=== PATIENT | male | born 1990 | race African-American/Black ===

== ENCOUNTER → 2020-05-24 | Outpatient (CLI) | payer SELFPAY | END | disposition home or self-care (01) | LOC: LABWHC1 11:15 | PROVIDERS: ATTEND Emergency Medicine | DX: Z20.828 Contact with and (suspected) exposure to other viral communicable diseases (principal) | CPT/HCPCS: U0003; C9803 ==

== ENCOUNTER 2022-02-17 12:38 | Emergency (ER) | payer BC, OTHER ==
[2022-02-17 13:01] VITALS: RESP 18
[2022-02-17] MEDS ORDERED: KETOROLAC 15 MG/ML 1 ML VIAL IVP STA (14:00)
[2022-02-17] MEDS ORDERED: ONDANSETRON ODT 4 MG TAB PO STA (14:00)
[2022-02-17] MEDS ORDERED: SODIUM CHLORIDE 0.9% 1,000 ML IV STA (14:00)
[2022-02-17 14:42] LABS: Appearance,Urine Clear (Clear); Bilirubin,Urine Negative (Negative); Blood,Urine Negative (Negative); Color,Urine Yellow; Glucose,Urine (UA) Negative (Negative); Ketones,Urine Negative (Negative); Leukocyte Esterase,Urine Small (Negative); Mucus,Urine Rare /hpf; Nitrite,Urine Negative (Negative); PH, Urine 7.5 (5.0-8.0); Protein,Urine Trace (Negative); RBC,Urine 1 /hpf (0-5); Specific Gravity,Urine 1.023 (1.001-1.035); Squamous Epithelial Cell,Urine 1 /hpf (0-4); Urobilinogen,Urine <2.0 mg/dL (<2.0); WBC,Urine 6 /hpf (0-5)
[2022-02-17 14:45] LABS: Basophils % (A) 0 %; Eosinophils # (A) 0.2 k/uL (0-0.7); Eosinophils % (A) 2 %; HCT 47.3 % (39.0-53.0); HGB 14.8 gm/dL (13.0-17.5); Hypochromasia Slight; Lymphocytes # (A) 1.6 k/uL (1.0-4.8); Lymphocytes % (A) 24 %; MCH 26.1 pg (25.0-35.0); MCHC 31.3 g/dL (31.0-37.0); MCV 83.4 fL (80.0-100.0); Mean Platelet Volume 7.4; Monocytes # (A) 0.3 k/uL (0-1.0); Monocytes % (A) 5 %; Neutrophils # (A) 4.5 k/uL (1.3-7.7); Neutrophils % (A) 67 %; Platelet Count 194 k/uL (150-450); RBC 5.67 m/uL (4.30-5.90); RDW 15.9 % (11.5-15.5); WBC 6.8 k/uL (3.8-10.6)
[2022-02-17 14:56] LABS: ALT 11 U/L (4-49); AST 26 U/L (17-59); African American GFR (CKD) >90 (>60 ml/min/1.73 sqM); Albumin 4.4 g/dL (3.5-5.0); Alkaline Phosphatase 60 U/L (38-126); Anion Gap 6 mmol/L; Blood Urea Nitrogen 13 mg/dL (9-20); Calcium 9.5 mg/dL (8.4-10.2); Carbon Dioxide 29 mmol/L (22-30); Chloride 104 mmol/L (98-107); Glucose 81 mg/dL (74-99); Lipase 130 U/L (23-300); Non-African American GFR(CKD) 90 (>60 ml/min/1.73 sqM); Potassium 4.8 mmol/L (3.5-5.1); Sodium 139 mmol/L (137-145); Total Bilirubin 0.6 mg/dL (0.2-1.3); Total Protein 7.2 g/dL (6.3-8.2)
--- NOTE | 2022-02-17 15:07 | CT ---
EXAMINATION TYPE: CT abdomen pelvis wo con DATE OF EXAM: 02/17/2022 COMPARISON: HISTORY: left flank pain CT DLP: 351.6 mGycm Automated exposure control for dose reduction was used. TECHNIQUE: Helical acquisition of images was performed from the lung bases through the pelvis. FINDINGS: There are numerous faint punctate calcifications involving the kidneys bilaterally. No definite hydr onephrosis. Would consider medullary sponge kidney in the differential diagnosis.. 2 mm calcification posterior to the bladder on the left is suspicious for a distal ureteral calcification. Lack of contrast and lack of intra-abdominal fat limits assessment of the remaining portions of the abdomen and pelvis. Grossly there appear to be vascular phleboliths in the pelvis. Appendix is not se en. Bowel gas pattern is grossly nonspecific. Tiny accessory spleens suspected. No obvious gallstones. Adrenal glands normal morphology. Pancreas l imited. Spleen homogeneous. Lung bases clear. Nondiagnostic assessment for adenopathy. IMPRESSION: 1. Bilateral punctate numerous renal calculi which are faint could be on the basis of medullary spong e kidney. There is a 2 mm calcification in the region of the left UVJ suspicious for a distal uretera l stone. 2. Severely limited exam for remaining portions of the abdomen due to lack of contrast and intra-abdo lesley fat.
--- NOTE | 2022-02-17 15:46 | ED ---
General Adult HPI - General Chief complaint: Back Pain/Injury Stated complaint: back pain Time Seen by Provider: 02/17/22 13:42 Source: patient Mode of arrival: ambulatory Limitations: no limitations - History of Present Illness Initial comments: This 31-year-old male presents emergency department with left flank pain that began last night. Patient states he did try to take Motrin which did significantly relieve his pain. Patient states the pain is constant and dull and he has episodic sharp pains to his left flank. Patient denies any history of kidney stones in his past. Patient states the pain worsens when he is sitting and is better when he is lying down. Patient states his pain is currently 5/10 but was 9/10 last night when the pain began. Patient states he did feel nauseous but denies any vomiting or fever. Patient denies any chest pain, shortness of breath, abdominal pain, vomiting, change in bowel or bladder, change in appetite, lightheadedness, dizziness, changes in vision, rash. He denies any urinary burning, urgency, frequency or blood in urine. - Related Data Previous Rx's Medication Instructions Recorded Ibuprofen [Motrin] 600 mg PO Q8HR PRN #20 tab 02/17/22 Tamsulosin [Flomax] 0.4 mg PO DAILY #12 cap 02/17/22 traMADol HCl [Ultram] 50 mg PO Q6HR PRN #12 tab 02/17/22 Allergies Allergy/AdvReac Type Severity Reaction Status Date / Time No Known Allergies Allergy Verified 02/17/22 14:46 Review of Systems ROS Statement: Those systems with pertinent positive or pertinent negative responses have been documented in the HPI. ROS Other: All systems not noted in ROS Statement are negative. Past Medical History Additional Past Medical History / Comment(s): back pain History of Any Multi-Drug Resistant Organisms: None Reported Past Surgical History: No Surgical Hx Reported Past Psychological History: No Psychological Hx Reported Smoking Status: Current every day smoker Past Alcohol Use History: Occasional Past Drug Use History: None Reported General Exam Limitations: no limitations General appearance: alert, in no apparent distress Head exam: Present: atraumatic, normocephalic, normal inspection Eye exam: Present: normal appearance, PERRL, EOMI. Absent: scleral icterus, conjunctival injection, periorbital swelling Pupils: Present: normal accommodation ENT exam: Present: normal exam, mucous membranes moist Neck exam: Present: normal inspection, full ROM. Absent: tenderness, meningismus, lymphadenopathy Respiratory exam: Present: normal lung sounds bilaterally. Absent: respiratory distress, wheezes, rales, rhonchi, stridor, chest wall tenderness Cardiovascular Exam: Present: regular rate, normal rhythm, normal heart sounds. Absent: systolic murmur, diastolic murmur, rubs, gallop, clicks GI/Abdominal exam: Present: soft, normal bowel sounds. Absent: distended, tenderness, guarding, rebound, rigid Extremities exam: Present: normal inspection, full ROM, normal capillary refill. Absent: tenderness, pedal edema, joint swelling, calf tenderness Back exam: Present: normal inspection, full ROM, CVA tenderness (L). Absent: CVA tenderness (R), paraspinal tenderness, vertebral tenderness Neurological exam: Present: alert, oriented X3, CN II-XII intact Psychiatric exam: Present: normal affect, normal mood Skin exam: Present: warm, dry, intact, normal color. Absent: rash Course Vital Signs 02/17/22 12:58 Temperature 98.1 F Pulse Rate 69 Respiratory 18 Rate Blood Pressure 137/82 O2 Sat by Pulse 100 Oximetry Medical Decision Making - Medical Decision Making This 31-year-old male presents emergency Department with left flank pain 1 day. Labs without leukocytosis, chemistry unremarkable, urine with small leukocyte esterase and 6 white blood cells. Patient without any urinary symptoms. CT abdomen and pelvis without contrast impression: Lateral punctate numerous renal calculi which are faint could be an basis of medullary sponge kidney. There is a 2 mm calcification in the region of the left UVJ suspicious for distal ureteral stone. I did instruct patient to follow-up with urology in the next 3- 5 days. Instructed patient follow-up with his primary care provider next 1-2 days. Strict return precautions were discussed. Patient verbally agree to plan. Patient sent home in stable condition. Prescription for Flomax, Motrin and Ultram were given to patient. Case discussed in detail my attending, . - Lab Data Result diagrams: 02/17/22 14:30 02/17/22 14:30 Lab Results 02/17/22 02/17/22 02/17/22 Range/Units 14:30 14:30 14:30 WBC 6.8 (3.8-10.6) k/uL RBC 5.67 (4.30-5.90) m/uL Hgb 14.8 (13.0-17.5) gm/dL Hct 47.3 (39.0-53.0) % MCV 83.4 (80.0-100.0) fL MCH 26.1 (25.0-35.0) pg MCHC 31.3 (31.0-37.0) g/dL RDW 15.9 H (11.5-15.5) % Plt Count 194 (150-450) k/uL MPV 7.4 Neutrophils % 67 % Lymphocytes % 24 % Monocytes % 5 % Eosinophils % 2 % Basophils % 0 % Neutrophils # 4.5 (1.3-7.7) k/uL Lymphocytes # 1.6 (1.0-4.8) k/uL Monocytes # 0.3 (0-1.0) k/uL Eosinophils # 0.2 (0-0.7) k/uL Basophils # 0.0 (0-0.2) k/uL Hypochromasia Slight Sodium 139 (137-145) mmol/L Potassium 4.8 (3.5-5.1) mmol/L Chloride 104 (98-107) mmol/L Carbon Dioxide 29 (22-30) mmol/L Anion Gap 6 mmol/L BUN 13 (9-20) mg/dL Creatinine 1.08 (0.66-1.25) mg/dL Est GFR (CKD-EPI)AfAm >90 (>60 ml/min/1.73 sqM) Est GFR (CKD-EPI)NonAf 90 (>60 ml/min/1.73 sqM) Glucose 81 (74-99) mg/dL Calcium 9.5 (8.4-10.2) mg/dL Total Bilirubin 0.6 (0.2-1.3) mg/dL AST 26 (17-59) U/L ALT 11 (4-49) U/L Alkaline Phosphatase 60 (38-126) U/L Total Protein 7.2 (6.3-8.2) g/dL Albumin 4.4 (3.5-5.0) g/dL Lipase 130 (23-300) U/L Urine Color Yellow Urine Appearance Clear (Clear) Urine pH 7.5 (5.0-8.0) Ur Specific [place] 1.023 (1.001-1.035) Urine Protein Trace H (Negative) Urine Glucose (UA) Negative (Negative) Urine Ketones Negative (Negative) Urine Blood Negative (Negative) Urine Nitrite Negative (Negative) Urine Bilirubin Negative (Negative) Urine Urobilinogen <2.0 (<2.0) mg/dL Ur Leukocyte Esterase Small H (Negative) Urine RBC 1 (0-5) /hpf Urine WBC 6 H (0-5) /hpf Ur Squamous Epith Cells 1 (0-4) /hpf Urine Mucus Rare H (None) /hpf Disposition Clinical Impression: Calculus of left kidney Disposition: HOME SELF-CARE Condition: Stable Instructions (If sedation given, give patient instructions): Kidney Stones (ED) Additional Instructions: Please follow-up with primary care provider next 1-2 days. Follow-up with urology in next 3-5 days. Return to the emergency department with any new, worsening, or concerning symptoms. Take Flomax, Motrin and Ultram as directed. Prescriptions: Tamsulosin [Flomax] 0.4 mg PO DAILY #12 cap Ibuprofen [Motrin] 600 mg PO Q8HR PRN #20 tab PRN Reason: Pain traMADol HCl [Ultram] 50 mg PO Q6HR PRN #12 tab PRN Reason: Severe Pain Is patient prescribed a controlled substance at d/c from ED?: Yes When asked, does pt state using other controlled substances?: No If prescribed controlled substance>3 days was MAPS reviewed?: Prescribed <3 Days If opioid is for acute pain is fill amount 7 days or less?: Yes Referrals: None,Stated [Primary Care Provider] - 1-2 days Pawel Weaver MD [STAFF PHYSICIAN] - 1-2 days Time of Disposition: 15:45
[2022-02-17 15:57] VITALS: BP 128/83; PULSE 73; TEMP 98
== END 2022-02-17 15:55 | disposition home or self-care (01) ==
LOC: EC 12:38
DX: N20.0 Calculus of kidney (principal); F17.200 Nicotine dependence, unspecified, uncomplicated
CPT/HCPCS: 36415; 80053; 83690; 85025; 81001; 74176; 99284; 96374; J1885